=== PATIENT | female | born 1990 | race Caucasian/White ===

== ENCOUNTER 2020-12-24 17:00 | Emergency (ER) | payer BC, SELFPAY ==
[2020-12-24 17:43] VITALS: BP 184/108; PULSE 101; RESP 22; O2SAT 96; BMI 39.8
--- NOTE | 2020-12-24 17:44 | HMH.EDUTC ---
[facility] [place] Disposition Clinical Impression: Laryngitis Acute bronchitis Qualifiers: Bronchitis organism: unspecified organism Qualified Code(s): J20.9 - Acute bronchitis, unspecified Disposition: Home Health Service Condition on Discharge: Good Instructions: Acute Bronchitis, DI for Laryngitis Additional Instructions: Drink plenty of fluids. Take tylenol or ibuprofen for pain or fever. Take the medications as directed. Follow up with your regular doctor. GO TO THE ER FOR ANY WORSENING SYMPTOMS Prescriptions: Brompheniramine/Pseudoephed/Dm [Bromfed Dm Cough Syrup] 5 ml PO Q6HP PRN #240 syrup PRN Reason: Cough Transmission Status: Received by [facility] # methylPREDNISolone [Medrol] 4 mg PO DIRECTED 6 Days #21 tab.[email or web address] Transmission Status: Received by [facility] # Benzonatate [Tessalon Perle 100mg Cap] 100 mg PO TIDP PRN #30 cap PRN Reason: Cough Transmission Status: Received by [facility] # Azithromycin [Z-Onur 250mg Tab*] 250 mg PO UD DOSE PK #6 tab Transmission Status: Received by [facility] # Referrals: Bernadette Kong [Primary Care Provider] - Time of Disposition: 17:51 Medical Decision Making - Medical Records Medical records reviewed: No: I reviewed the patient's medical records. - Vikram Inquiry Pt receiving controlled substance: No Vital Signs: 12/24/20 17:43 12/24/20 17:59 Temperature 98.5 F Pulse Rate 101 H Pulse Rate [Right] 101 H Respiratory Rate 22 16 Blood Pressure 000/00 L Blood Pressure [Right Arm] 184/108 H Blood Pressure Mean [Right Arm] 133 02 Sat by Pulse Oximetry 96 - Lab Data Lab results reviewed: Yes: I reviewed the patient's lab results. Lab Results 12/24/20 17:46: Strep Scn Rapid Clinic Negative Orders (Tests/Meds): ORDERS Category Date Time Status Strep Screen Confirmation Stat Micro 12/24/20 17:46 Received [facility] [place] HPI - General Stated complaint: cough,chest congestion Time Seen by Provider: 12/24/20 17:44 - History of Present Illness Provider Complaint: She states that she has had a cough and chest congestion for the past 3 days. She usually gets bronchitis at this time of the year once per year. She also has a sore throat. She denies any fever/chills/body aches/n/v/d. She has been vaccinated against covid-19. - Related Data Previous Rx's Medication Instructions Recorded Azithromycin [Z-Onur 250mg Tab*] 250 mg PO UD DOSE PK #6 tab 12/24/20 Benzonatate [Tessalon Perle 100mg 100 mg PO TIDP PRN #30 cap 12/24/20 Cap] Brompheniramine/Pseudoephed/Dm 5 ml PO Q6HP PRN #240 syrup 12/24/20 [Bromfed Dm Cough Syrup] methylPREDNISolone [Medrol] 4 mg PO DIRECTED 6 Days #21 12/24/20 tab.ds.pk Allergies Allergy/AdvReac Type Severity Reaction Status Date / Time NO KNOWN ALLERGIES Allergy Uncoded 06/19/17 15:42 [facility] History - Hepatitis A Screen Attestation statement:: This patient has been screened for Hepatitis A risk factors. I have reviewed the patient's past medical history: Yes ROS Obtained: Yes All systems reviewed & no additional complaints - Constitutional Constitutional: Reports system reviewed and no additional complaints, except as docu - Eyes Eyes: Reports system reviewed and no additional complaints, except as docu - ENT Ears, Nose, Mouth, and Throat: Reports system reviewed and no additional complaints, except as docu - Cardiovascular Cardiovascular: Reports system reviewed and no additional complaints, except as docu - Respiratory Respiratory: Reports system reviewed and no additional complaints, except as docu - Gastrointestinal Gastrointestingal: Reports: system reviewed and no additional complaints, except as docu Physical Exam - General General appearance: alert, in no apparent distress - Head Head exam: atraumatic, normocephalic, normal inspection - Eye Eye exam: Present: normal appearance, PERRL, EOMI -
[2020-12-24 17:59] VITALS: BP 000/00; PULSE 101; RESP 16; TEMP 36.9
[2020-12-24 18:05] LABS: UTC Strep Screen (Rapid) Negative (Negative)
== END 2020-12-24 18:02 | disposition home health service (06) ==
PROVIDERS: Emergency Provider Nurse Practitioner Family; PCP Family Medicine
DX: J20.9 Acute bronchitis, unspecified (principal); J04.0 Acute laryngitis
CPT/HCPCS: 87880; 99202; G0463